=== PATIENT | male | born 1975 | race Caucasian/White ===

== ENCOUNTER 2017-10-22 12:39 | Emergency (ER) | payer BC ==
[2017-10-22] MEDS ORDERED: KETOROLAC 30 MG/ML 1 ML VIAL IVP STA (14:43)
[2017-10-22] MEDS ORDERED: diphenhydrAMINE 50 MG/ML 1 ML VIAL IVP STA (14:43)
[2017-10-22] MEDS ORDERED: DIAZEPAM 5 MG/ML 2 ML INJ IVP STA (14:43)
[2017-10-22] MEDS ORDERED: methylPREDNISolone SOD SUCCI 250 MG in SODIUM CHLORIDE 0.9% 100 ML IVPB STA (14:43)
[2017-10-22] MEDS ORDERED: METOCLOPRAMIDE 5 MG/ML 2 ML VIAL IVP STA (14:43)
[2017-10-22] MEDS ORDERED: SODIUM CHLORIDE 0.9% 500 ML IV STA (14:43)
--- NOTE | 2017-10-22 15:36 | ED ---
General Adult HPI - General Chief complaint: Headache Stated complaint: migraine Time Seen by Provider: 10/22/17 14:13 Source: patient, RN notes reviewed, old records reviewed Mode of arrival: ambulatory Limitations: no limitations - History of Present Illness Initial comments: This is a 41-year-old male the ER today. This patient presents today for evaluation regards to headache. Patient is complaining of generalized headache headache that starts in the neck his neck and radiates down into the shoulders. Patient states he does have history of headache, mild history of anxiety. Patient was treating headache at home with Motrin Tylenol no real improvement. Headache is been episodic for the last month, patient denies any trauma no fevers. No neurological complaints. - Related Data Home Medications Medication Instructions Recorded Confirmed Ibuprofen [Advil] 400 mg PO Q6HR PRN 10/22/17 10/22/17 LORazepam [Ativan] 1 mg PO DAILY PRN 10/22/17 10/22/17 Losartan/Hydrochlorothiazide 1 each PO DAILY 10/22/17 10/22/17 [Hyzaar 100-25 Tablet] Sertraline HCl [Zoloft] 150 mg PO DAILY 10/22/17 10/22/17 Allergies Allergy/AdvReac Type Severity Reaction Status Date / Time Penicillins Allergy Unknown Verified 10/22/17 15:35 Childhood Sulfa (Sulfonamide Allergy Unknown Verified 10/22/17 15:35 Antibiotics) Childhood Review of Systems ROS Statement: Those systems with pertinent positive or pertinent negative responses have been documented in the HPI. ROS Other: All systems not noted in ROS Statement are negative. Past Medical History Past Medical History: Hypertension, Sleep Apnea/CPAP/BIPAP Additional Past Medical History / Comment(s): HX OF DIARRHEA, BLOOD IN STOOL History of Any Multi-Drug Resistant Organisms: None Reported Past Surgical History: Orthopedic Surgery Additional Past Surgical History / Comment(s): KNEE ARTHROSCOPY, WISDOM TEETH Additional Past Anesthesia/Blood Transfusion Reaction / Comment(s): STATES "IT TAKES MORE THAN NORMAL ANESTHESIA TO PUT ME TO SLEEP" Past Psychological History: Anxiety Smoking Status: Never smoker Past Alcohol Use History: Occasional Past Drug Use History: None Reported - Past Family History Mother Family Medical History: Cancer Additional Family Medical History / Comment(s): BREAST General Exam Limitations: no limitations General appearance: alert, in no apparent distress Head exam: Present: atraumatic, normocephalic, normal inspection Eye exam: Present: normal appearance, PERRL, EOMI. Absent: scleral icterus, conjunctival injection, periorbital swelling ENT exam: Present: normal exam, mucous membranes moist Neck exam: Present: normal inspection. Absent: tenderness, meningismus, lymphadenopathy Respiratory exam: Present: normal lung sounds bilaterally. Absent: respiratory distress, wheezes, rales, rhonchi, stridor Cardiovascular Exam: Present: regular rate, normal rhythm, normal heart sounds. Absent: systolic murmur, diastolic murmur, rubs, gallop, clicks GI/Abdominal exam: Present: soft, normal bowel sounds. Absent: distended, tenderness, guarding, rebound, rigid Extremities exam: Present: normal inspection, full ROM, normal capillary refill. Absent: tenderness, pedal edema, joint swelling, calf tenderness Back exam: Present: normal inspection Neurological exam: Present: alert, oriented X3, CN II-XII intact Psychiatric exam: Present: normal affect, normal mood Skin exam: Present: warm, dry, intact, normal color. Absent: rash Course Vital Signs 10/22/17 10/22/17 13:47 15:31 Temperature 98.8 F Pulse Rate 115 H 60 Respiratory 18 16 Rate Blood Pressure 120/75 119/59 O2 Sat by Pulse 96 97 Oximetry - Reevaluation(s) Reevaluation #1: 10/22/17 16:38 Patient states his headache is significantly significantly improved at this time , Medical Decision Making - Medical Decision Making 41 male to the ED co SORIA, SORIA currently resolved, CT brain is negative for acute disease, patient is ok for discharge - Radiology Data Radiology results: report reviewed (CT brain is negative for acute disease), image reviewed Disposition Clinical Impression: Headache, Migraine, Tension headache Disposition: HOME SELF-CARE Condition: Good Instructions: Acute Headache (ED) Is patient prescribed a controlled substance at d/c from ED?: No Referrals: Mo Hardy MD [Primary Care Provider] - 1-2 days
--- NOTE | 2017-10-22 17:22 | CT ---
EXAMINATION TYPE: CT brain nawaf patel con DATE OF EXAM: 10/22/2017 COMPARISON: None HISTORY: Headache and neck pain x [address] DLP: 1884 mGycm Automated exposure control for dose reduction was used. TECHNIQUE: CT scan of the head and cervical spine are performed without contrast. FINDINGS: Ventricles and sulci appear normal. There is no mass effect nor midline shift. There is n o sign of intracranial hemorrhage. The calvarium is intact. The cervical vertebra have normal spacing and alignment. Posterior elements are intact. Facet joints appear normal. The skull base appears intact. IMPRESSION: Negative CT scan of the brain. Minimal right maxillary sinusitis. Negative CT scan of the cervical spine.
[2017-10-22 17:41] VITALS: BP 127/53; PULSE 84; RESP 18; TEMP 97.9
== END 2017-10-22 17:42 | disposition home or self-care (01) ==
LOC: EC 12:39
DX: G44.209 Tension-type headache, unspecified, not intractable (principal); G43.909 Migraine, unspecified, not intractable, without status migrainosus; I10 Essential (primary) hypertension; G47.30 Sleep apnea, unspecified; F41.9 Anxiety disorder, unspecified; Z79.899 Other long term (current) drug therapy; Z88.0 Allergy status to penicillin; Z88.2 Allergy status to sulfonamides; Z99.89 Dependence on other enabling machines and devices
CPT/HCPCS: 70450; 72125; 96365; 96375; 99284